=== PATIENT | female | born 1935 | race Caucasian/White ===

== ENCOUNTER 2022-09-04 16:36 | Emergency (ER) | payer OTHER ==
[2022-09-04 16:59] VITALS: BMI 26.5
[2022-09-04] MEDS ORDERED: METOCLOPRAMIDE HCL INJECTION 10 MG/2 ML VIAL IVPUSH ONE (17:47)
[2022-09-04] MEDS ORDERED: FAMOTIDINE 20 MG/50 ML IVPB 20 MG/50 ML MG IVPB ONE ×2 (17:47→18:47)
[2022-09-04] MEDS ORDERED: METOCLOPRAMIDE HCL INJECTION 10 MG/2 ML VIAL ONE (18:47)
[2022-09-04 19:42] LABS: BASO % 0.9 % (0-2.0); EPI CELLS 15 /uL (0-25.1); HEMATOCRIT 43.3 % (32.4-45.2); HEMOGLOBIN 13.8 GM/dL (10.7-15.3); HYALINE CASTS 0 /uL (0-3.1); LYMPH % 25.8 % (8-40); MCH 26.5 pg (25.7-33.7); MCHC 31.8 g/dl (32.0-36.0); MEAN CELL VOLUME 83.3 fl (80-96); MONO % 6.8 % (3.8-10.2); NEUT % 65.5 % (42.8-82.8); PH,URINE 5.5 (5.0-8.0); PLATELET COUNT 229 10^3/uL (134-434); RBC 5.19 M/mm3 (3.60-5.2); RDW 14.6 % (11.6-15.6); URINE APPEARANCE CLEAR; URINE BACTERIA 70 /uL (0-1359); URINE BILIRUBIN NEGATIVE (NEGATIVE); URINE COLOR YELLOW; URINE GLUCOSE (UA) NEGATIVE (NEGATIVE); URINE KETONE TRACE (NEGATIVE); URINE LEUK ESTERASE 1+ (NEGATIVE); URINE NITRITE NEGATIVE (NEGATIVE); URINE PROTEIN NEGATIVE (NEGATIVE); URINE RBC 13 /uL (0-23.9); URINE UROBILINOGEN 0.2 mg/dL (0.2-1.0); URINE WBC 23 /uL (0-25.8); WHITE BLOOD COUNT 5.5 K/mm3 (4.0-10.0)
[2022-09-04 19:49] LABS: INR 1.03 (0.83-1.09)
[2022-09-04 19:55] VITALS: TEMP 98.9
[2022-09-04 19:59] LABS: POTASSIUM 4.9 mmol/L (3.5-5.1)
[2022-09-04 20:04] LABS: ALBUMIN 3.7 g/dl (3.4-5.0); BLOOD UREA NITROGEN 20.3 mg/dL (7-18); CALCIUM 9.9 mg/dL (8.5-10.1); MAGNESIUM 2.3 mg/dL (1.8-2.4)
[2022-09-04 20:07] LABS: CREATININE 1.1 mg/dL (0.55-1.3)
[2022-09-04 20:08] LABS: BILIRUBIN,TOTAL 0.4 mg/dL (0.2-1); TOT PROT 6.7 g/dl (6.4-8.2)
[2022-09-04 20:09] VITALS: BP 148/61; PULSE 62; RESP 18
== END 2022-09-04 23:09 | disposition home or self-care (01) ==
LOC: JER 16:36
DX: R07.2 Precordial pain (principal); R06.01 Orthopnea; K59.00 Constipation, unspecified; R10.13 Epigastric pain; Z20.822 Contact with and (suspected) exposure to COVID-19
CPT/HCPCS: 0241U-QW; 36415; 71046-TC-FY; 80053; 81003; 83690; 83735; 83880; 84484; 85025; 85379; 85610; 87086; 93005; 93010; 99285-25